=== PATIENT | female | born 1975 ===

== ENCOUNTER 2021-08-25 10:05 | Emergency (ER) | payer SELFPAY ==
--- NOTE | 2021-08-25 10:44 | Emergency Department Report ---
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 Due to findings the following was ordered: NO LIFE THREAT MSE OUT WITH PODIATRY FOLLOWUP ED Disposition for MSE Clinical Impression: Ingrown nail of great toe of left foot Disposition: 01 HOME / SELF CARE / HOMELESS Is pt being admited?: No Does the pt Need Aspirin: No Condition: Stable Referrals: BALA HENDERSON MD [Staff Physician] - 3-5 Days EVE MACKEY DPM [Staff Physician] - 3-5 Days Time of Disposition: 10:43
== END 2021-08-25 11:00 | disposition home or self-care (01) ==
LOC: ED 10:05
DX: L60.0 Ingrowing nail (principal)
CPT/HCPCS: 99281